=== PATIENT | female | born 1970 | race Caucasian/White ===

== ENCOUNTER 2017-05-06 10:35 | Emergency (ER) | payer SELFPAY ==
[~2017-05-06] VITALS: Ht 157.5 cm; Wt 47.2 kg
[2017-05-06] MEDS ORDERED: BACLOFEN10 MG PO (11:05)
[2017-05-06] MEDS ORDERED: METHYLPREDNISOLO4 M1 PO (11:05)
[2017-05-06] MEDS ORDERED: NORCO 5-325 TA1 EACH PO (11:05)
== END 2017-05-06 11:15 | disposition home or self-care (01) ==
LOC: ED 10:35
DX: M99.02 Segmental and somatic dysfunction of thoracic region (principal)
CPT/HCPCS: 99283

== ENCOUNTER 2017-07-30 11:35 | Emergency (ER) | payer OTHER ==
[~2017-07-30] VITALS: Ht 162.6 cm; Wt 45.4 kg
[~2017-07-30 11:35] MED LIST: BACLOFEN10 MG PO; METHYLPREDNISOLO4 M1 PO; NORCO 5-325 TA1 EACH PO
[2017-07-30] MEDS ORDERED: TYLENOL COLD &1 EACH PO (11:54)
== END 2017-07-30 13:22 | disposition home or self-care (01) ==
LOC: ED 11:35
DX: S43.402A Unspecified sprain of left shoulder joint, initial encounter (principal); X58.XXXA Exposure to other specified factors, initial encounter
CPT/HCPCS: 93971; 99284